=== PATIENT | female | born 1945 | race Caucasian/White ===

== ENCOUNTER 2022-07-21 09:13 | Emergency (ER) | payer MEDICARE ==
[~2022-07-21] VITALS: Ht 152.4 cm; Wt 72.0 kg
[2022-07-21 09:24] VITALS: BP 142/62
[2022-07-21] MEDS ORDERED: CEPH500C2 MT (10:04)
== END 2022-07-21 10:18 | disposition home or self-care (01) ==
LOC: ER 09:13
DX: L03.115 Cellulitis of right lower limb (principal); E11.9 Type 2 diabetes mellitus without complications; I10 Essential (primary) hypertension; E78.00 Pure hypercholesterolemia, unspecified
CPT/HCPCS: 99283